=== PATIENT | female | born 1935 | race Caucasian/White ===

== ENCOUNTER 2018-02-05 12:49 | Outpatient (CLI) | payer MEDICARE ==
--- NOTE | 2018-02-05 15:08 | CT ---
CT HEAD NONCONTRAST: HISTORY: Headaches. COMPARISON: 05/02/16. FINDINGS: There is no evidence of acute intracranial hemorrhage or infarct. Ventricles appear normal in size, shape, and position. There is no mass effect or shift of midline structures. IMPRESSION: No acute intracranial abnormalities are demonstrated on noncontrast CT head. POS: [facility]
== END 2018-02-05 12:50 | disposition home or self-care (01) ==
LOC: MADCT 12:49
PROVIDERS: ATTEND Obstetrics & Gynecology
DX: G44.229 Chronic tension-type headache, not intractable (principal)
CPT/HCPCS: 70450

== ENCOUNTER 2023-05-26 14:21 | Inpatient (IN) | payer OTHER ==
[2023-05-26] MEDS ORDERED: Meclizine HCl 25 MG TAB PO PRN (15:15)
[2023-05-26] MEDS ORDERED: traMADol HCl 50 MG TAB PO PRN (19:39)
[2023-05-26] MEDS ORDERED: Acetaminophen 325 MG TAB PO PRN (19:41)
[2023-05-26] MEDS ORDERED: Lantiseptic Ointment 130 GM JAR TOP PRN (20:35)
[2023-05-26] MEDS: Lantus 1000 UNITS/10 ML VIAL SC SCH (21:17)
[2023-05-26] MEDS: Lantiseptic Ointment 130 GM JAR TOP SCH (21:17)
[2023-05-26] MEDS: Amiodarone 200 MG TAB PO SCH (21:18)
[2023-05-26] MEDS: Rosuvastatin 10 MG TAB PO SCH (21:18)
[2023-05-26] MEDS: Gabapentin 300 MG CAP PO SCH (21:18)
[2023-05-26] MEDS: hydrALAZINE 25 MG TAB PO SCH (21:19)
[2023-05-26] MEDS: Apixaban 2.5 MG TAB PO SCH (21:19)
[2023-05-27] MEDS: Levothyroxine Sodium 50 MCG TAB PO SCH (05:40)
[2023-05-27] MEDS: hydrALAZINE 25 MG TAB PO SCH ×3 (08:08→20:23)
[2023-05-27] MEDS: Furosemide 20 MG TAB PO SCH (08:09)
[2023-05-27] MEDS: Colchicine 0.6 MG TAB PO SCH (08:09)
[2023-05-27] MEDS: Apixaban 2.5 MG TAB PO SCH ×2 (08:10→20:22)
[2023-05-27] MEDS: Gabapentin 300 MG CAP PO SCH ×2 (08:11→20:22)
[2023-05-27] MEDS: Empagliflozin 10 MG TAB PO SCH (08:11)
[2023-05-27] MEDS: Lantiseptic Ointment 130 GM JAR TOP SCH ×2 (08:12→20:24)
[2023-05-27] MEDS: Amiodarone 200 MG TAB PO SCH ×2 (08:17→20:22)
[2023-05-27] MEDS ORDERED: NIFEdipine XL 30 MG TAB PO SCH (09:00)
[2023-05-27] MEDS: Lantus 1000 UNITS/10 ML VIAL SC SCH (09:43)
[2023-05-27] MEDS ORDERED: Dextrose 5% in Water 1,000 ML IV PRN (13:30)
[2023-05-27] MEDS ORDERED: Glucagon 1 MG/ML KIT IM PRN (13:30)
[2023-05-27] MEDS ORDERED: Dextrose 50% Abboject 50 ML SYRINGE IVP PRN (13:30)
[2023-05-27] MEDS: Rosuvastatin 10 MG TAB PO SCH (20:22)
[2023-05-27] MEDS ORDERED: Lantus 1000 UNITS/10 ML VIAL SC SCH (21:00)
[2023-05-28] MEDS: Levothyroxine Sodium 50 MCG TAB PO SCH (06:14)
[2023-05-28] MEDS ORDERED: NIFEdipine XL 30 MG TAB PO SCH ×2 (09:00→09:45)
[2023-05-28] MEDS: Apixaban 2.5 MG TAB PO SCH ×2 (09:45→21:03)
[2023-05-28] MEDS: Colchicine 0.6 MG TAB PO SCH (09:45)
[2023-05-28] MEDS ORDERED: Amiodarone 200 MG TAB PO SCH (09:45)
[2023-05-28] MEDS: Gabapentin 300 MG CAP PO SCH ×2 (09:46→21:03)
[2023-05-28] MEDS: Empagliflozin 10 MG TAB PO SCH (09:46)
[2023-05-28] MEDS: Furosemide 20 MG TAB PO SCH (09:46)
[2023-05-28] MEDS: Lantiseptic Ointment 130 GM JAR TOP SCH ×2 (09:47→21:03)
[2023-05-28] MEDS: Amiodarone 200 MG TAB PO SCH (10:56)
[2023-05-28] MEDS: hydrALAZINE 25 MG TAB PO SCH (10:56)
[2023-05-28] MEDS ORDERED: Simethicone Chewable 80 MG TAB PO PRN (20:55)
[2023-05-28] MEDS: Rosuvastatin 10 MG TAB PO SCH (21:02)
[2023-05-29] MEDS: Levothyroxine Sodium 50 MCG TAB PO SCH (05:36)
[2023-05-29 07:38] LABS: Hematocrit 36.1 % (36.0-47.0); Hemoglobin 11.6 g/dL (12.0-16.0); Mean Corpuscular HGB CONC 32.2 g/dL (32.0-36.0); Mean Corpuscular Hemoglobin 31.3 pg (27.0-31.0); Mean Corpuscular Volume 97.3 fl (78.0-98.0); Platelet Count 332 10x3/uL (130-400); RBC Distribution Width 12.1 % (11.5-14.5); Red Blood Cell (RBC) Count 3.71 mill/uL (4.20-5.40); White Blood Cell (WBC) Count 9.5 10x3/uL (4.8-10.8)
[2023-05-29 07:49] LABS: Anion Gap 14 mmol/L (10-20); BUN (Urea Nitrogen) 35 mg/dL (9.8-20.1); Calc. Creatinine Clearance 21 mL/min (70-130); Calcium 9.5 mg/dL (7.8-10.44); Carbon Dioxide 29 mmol/L (23-31); Chloride 101 mmol/L (98-107); Estimated GFR 23; Glucose 112 mg/dL (83-110); Sodium 140 mmol/L (136-145)
[2023-05-29] MEDS: Empagliflozin 10 MG TAB PO SCH (08:42)
[2023-05-29] MEDS: Apixaban 2.5 MG TAB PO SCH ×2 (08:42→21:41)
[2023-05-29] MEDS: Furosemide 20 MG TAB PO SCH (08:43)
[2023-05-29] MEDS: NIFEdipine XL 30 MG TAB PO SCH ×2 (08:43→08:50)
[2023-05-29] MEDS: Gabapentin 300 MG CAP PO SCH ×2 (08:43→21:42)
[2023-05-29] MEDS: Colchicine 0.6 MG TAB PO SCH (08:44)
[2023-05-29] MEDS: Lantiseptic Ointment 130 GM JAR TOP SCH ×2 (08:45→21:43)
[2023-05-29] MEDS ORDERED: Amiodarone 200 MG TAB PO SCH (09:00)
[2023-05-29] MEDS: HumaLOG 300 UNITS/3 ML VIAL SC PRN (12:00)
[2023-05-29] MEDS ORDERED: Acetaminophen 500 MG TAB PO PRN (13:08)
[2023-05-29] MEDS: traMADol HCl 50 MG TAB PO SCH ×2 (15:11→21:43)
[2023-05-29] MEDS: Rosuvastatin 10 MG TAB PO SCH (21:43)
[2023-05-30] MEDS: Levothyroxine Sodium 50 MCG TAB PO SCH (05:17)
[2023-05-30] MEDS: Furosemide 20 MG TAB PO SCH (08:39)
[2023-05-30] MEDS: Empagliflozin 10 MG TAB PO SCH (08:39)
[2023-05-30] MEDS: Amiodarone 200 MG TAB PO SCH (08:39)
[2023-05-30] MEDS: traMADol HCl 50 MG TAB PO SCH ×3 (08:39→20:25)
[2023-05-30] MEDS: Gabapentin 300 MG CAP PO SCH ×2 (08:40→20:26)
[2023-05-30] MEDS: Apixaban 2.5 MG TAB PO SCH ×2 (08:40→20:25)
[2023-05-30] MEDS: Lantiseptic Ointment 130 GM JAR TOP SCH ×2 (08:40→20:29)
[2023-05-30] MEDS ORDERED: NIFEdipine XL 30 MG TAB PO SCH (09:00)
[2023-05-30] MEDS: HumaLOG 300 UNITS/3 ML VIAL SC PRN (12:06)
[2023-05-30] MEDS: Rosuvastatin 10 MG TAB PO SCH (20:26)
[2023-05-31] MEDS: Levothyroxine Sodium 50 MCG TAB PO SCH (05:37)
[2023-05-31] MEDS: Amiodarone 200 MG TAB PO SCH (08:17)
[2023-05-31] MEDS: Colchicine 0.6 MG TAB PO SCH (08:17)
[2023-05-31] MEDS: Apixaban 2.5 MG TAB PO SCH ×2 (08:18→20:14)
[2023-05-31] MEDS: NIFEdipine XL 30 MG TAB PO SCH (08:18)
[2023-05-31] MEDS: Empagliflozin 10 MG TAB PO SCH (08:18)
[2023-05-31] MEDS: Furosemide 20 MG TAB PO SCH (08:19)
[2023-05-31] MEDS: traMADol HCl 50 MG TAB PO SCH ×3 (08:19→20:14)
[2023-05-31] MEDS: Gabapentin 300 MG CAP PO SCH ×2 (08:20→20:13)
[2023-05-31] MEDS: HumaLOG 300 UNITS/3 ML VIAL SC PRN (08:20)
[2023-05-31] MEDS: Lantiseptic Ointment 130 GM JAR TOP SCH ×2 (08:25→20:14)
[2023-05-31] MEDS: Docusate 100 MG CAP PO PRN (18:48)
[2023-05-31] MEDS: Rosuvastatin 10 MG TAB PO SCH (20:12)
[2023-06-01] MEDS: Levothyroxine Sodium 50 MCG TAB PO SCH (05:16)
[2023-06-01] MEDS: HumaLOG 300 UNITS/3 ML VIAL SC PRN (09:14)
[2023-06-01] MEDS: NIFEdipine XL 30 MG TAB PO SCH (09:15)
[2023-06-01] MEDS: Gabapentin 300 MG CAP PO SCH ×2 (09:16→20:00)
[2023-06-01] MEDS: Amiodarone 200 MG TAB PO SCH (09:16)
[2023-06-01] MEDS: Apixaban 2.5 MG TAB PO SCH ×2 (09:17→20:00)
[2023-06-01] MEDS: Empagliflozin 10 MG TAB PO SCH (09:17)
[2023-06-01] MEDS: traMADol HCl 50 MG TAB PO SCH ×3 (09:17→19:59)
[2023-06-01] MEDS: Lantiseptic Ointment 130 GM JAR TOP SCH ×2 (09:18→20:01)
[2023-06-01] MEDS: Rosuvastatin 10 MG TAB PO SCH (19:59)
[2023-06-01] MEDS: Docusate 100 MG CAP PO PRN (20:00)
[2023-06-02] MEDS: Levothyroxine Sodium 50 MCG TAB PO SCH (05:04)
[2023-06-02] MEDS: Gabapentin 300 MG CAP PO SCH ×2 (09:39→21:39)
[2023-06-02] MEDS: Apixaban 2.5 MG TAB PO SCH ×2 (09:39→21:38)
[2023-06-02] MEDS: Amiodarone 200 MG TAB PO SCH (09:39)
[2023-06-02] MEDS: NIFEdipine XL 30 MG TAB PO SCH (09:39)
[2023-06-02] MEDS: Empagliflozin 10 MG TAB PO SCH (09:39)
[2023-06-02] MEDS: traMADol HCl 50 MG TAB PO SCH ×3 (09:40→21:38)
[2023-06-02] MEDS: Colchicine 0.6 MG TAB PO SCH (09:41)
[2023-06-02] MEDS: HumaLOG 300 UNITS/3 ML VIAL SC PRN ×2 (09:41→12:08)
[2023-06-02] MEDS: Furosemide 20 MG TAB PO SCH (09:41)
[2023-06-02] MEDS: Lantiseptic Ointment 130 GM JAR TOP SCH ×2 (09:42→21:40)
[2023-06-02] MEDS: Senokot S 8.6-50 MG TAB PO SCH (21:38)
[2023-06-02] MEDS: Rosuvastatin 10 MG TAB PO SCH (21:39)
[2023-06-03] MEDS: Levothyroxine Sodium 50 MCG TAB PO SCH (05:09)
[2023-06-03] MEDS: Senokot S 8.6-50 MG TAB PO SCH ×2 (08:43→20:50)
[2023-06-03] MEDS: Amiodarone 200 MG TAB PO SCH (08:43)
[2023-06-03] MEDS: NIFEdipine XL 30 MG TAB PO SCH (08:43)
[2023-06-03] MEDS: traMADol HCl 50 MG TAB PO SCH ×3 (08:43→20:54)
[2023-06-03] MEDS: Apixaban 2.5 MG TAB PO SCH ×2 (08:43→20:50)
[2023-06-03] MEDS: Gabapentin 300 MG CAP PO SCH ×2 (08:44→20:50)
[2023-06-03] MEDS: Empagliflozin 10 MG TAB PO SCH (08:44)
[2023-06-03] MEDS: HumaLOG 300 UNITS/3 ML VIAL SC PRN ×3 (08:45→17:00)
[2023-06-03] MEDS: Lantiseptic Ointment 130 GM JAR TOP SCH ×2 (08:45→20:53)
[2023-06-03] MEDS: Rosuvastatin 10 MG TAB PO SCH (20:50)
[2023-06-03] MEDS: Lantus 1000 UNITS/10 ML VIAL SC SCH (20:52)
[2023-06-04] MEDS: Levothyroxine Sodium 50 MCG TAB PO SCH (06:32)
[2023-06-04] MEDS: traMADol HCl 50 MG TAB PO SCH ×3 (08:36→20:22)
[2023-06-04] MEDS: Apixaban 2.5 MG TAB PO SCH ×2 (08:37→20:30)
[2023-06-04] MEDS: Empagliflozin 10 MG TAB PO SCH (08:38)
[2023-06-04] MEDS: Gabapentin 300 MG CAP PO SCH ×2 (08:38→20:30)
[2023-06-04] MEDS: Colchicine 0.6 MG TAB PO SCH (08:38)
[2023-06-04] MEDS: NIFEdipine XL 30 MG TAB PO SCH (08:38)
[2023-06-04] MEDS: Amiodarone 200 MG TAB PO SCH (08:38)
[2023-06-04] MEDS: Senokot S 8.6-50 MG TAB PO SCH ×2 (08:38→20:29)
[2023-06-04] MEDS: Lantiseptic Ointment 130 GM JAR TOP SCH ×2 (08:40→20:32)
[2023-06-04] MEDS: HumaLOG 300 UNITS/3 ML VIAL SC PRN (13:07)
[2023-06-04] MEDS: Rosuvastatin 10 MG TAB PO SCH (20:29)
[2023-06-04] MEDS: Lantus 1000 UNITS/10 ML VIAL SC SCH (20:30)
[2023-06-05] MEDS: Levothyroxine Sodium 50 MCG TAB PO SCH (05:20)
[2023-06-05 05:57] LABS: Hematocrit 34.5 % (36.0-47.0); Hemoglobin 11.2 g/dL (12.0-16.0); Mean Corpuscular HGB CONC 32.5 g/dL (32.0-36.0); Mean Corpuscular Hemoglobin 31.4 pg (27.0-31.0); Mean Corpuscular Volume 96.5 fl (78.0-98.0); Mean Platelet Volume 7.3 fL (7.4-10.4); Platelet Count 276 10x3/uL (130-400); RBC Distribution Width 12.1 % (11.5-14.5); Red Blood Cell (RBC) Count 3.57 mill/uL (4.20-5.40); White Blood Cell (WBC) Count 6.2 10x3/uL (4.8-10.8)
[2023-06-05 06:43] LABS: Anion Gap 15 mmol/L (10-20); BUN (Urea Nitrogen) 32 mg/dL (9.8-20.1); Calc. Creatinine Clearance 26 mL/min (70-130); Calcium 9.5 mg/dL (7.8-10.44); Carbon Dioxide 28 mmol/L (23-31); Chloride 100 mmol/L (98-107); Estimated GFR 30; Glucose 130 mg/dL (83-110); Potassium 3.9 mmol/L (3.5-5.1); Sodium 139 mmol/L (136-145)
[2023-06-05] MEDS: Empagliflozin 10 MG TAB PO SCH (08:38)
[2023-06-05] MEDS: Furosemide 20 MG TAB PO SCH (08:38)
[2023-06-05] MEDS: Gabapentin 300 MG CAP PO SCH ×2 (08:38→20:14)
[2023-06-05] MEDS: Senokot S 8.6-50 MG TAB PO SCH ×2 (08:38→20:16)
[2023-06-05] MEDS: Amiodarone 200 MG TAB PO SCH (08:38)
[2023-06-05] MEDS: NIFEdipine XL 30 MG TAB PO SCH (08:38)
[2023-06-05] MEDS: Apixaban 2.5 MG TAB PO SCH ×2 (08:39→20:14)
[2023-06-05] MEDS: traMADol HCl 50 MG TAB PO SCH ×3 (08:40→20:16)
[2023-06-05] MEDS: Lantiseptic Ointment 130 GM JAR TOP SCH ×2 (08:40→20:15)
[2023-06-05 11:48] LABS: Hemoglobin A1c 6.7 % (4.0-6.0)
[2023-06-05] MEDS: HumaLOG 300 UNITS/3 ML VIAL SC PRN ×2 (12:32→18:14)
[2023-06-05] MEDS ORDERED: HYDROcodone/Acetaminophen 5/325 mg Tablet PO PRN (13:12)
[2023-06-05] MEDS ORDERED: HYDROcodone/Acetaminophen 10/325 mg Tablet PO PRN (13:12)
[2023-06-05] MEDS ORDERED: Bisacodyl 10 MG SUPP PR PRN (13:24)
[2023-06-05] MEDS: Rosuvastatin 10 MG TAB PO SCH (20:14)
[2023-06-05] MEDS: Lantus 1000 UNITS/10 ML VIAL SC SCH (20:15)
[2023-06-06] MEDS: Levothyroxine Sodium 50 MCG TAB PO SCH (04:52)
[2023-06-06] MEDS: Empagliflozin 10 MG TAB PO SCH (08:32)
[2023-06-06] MEDS: NIFEdipine XL 30 MG TAB PO SCH (08:32)
[2023-06-06] MEDS: Amiodarone 200 MG TAB PO SCH (08:32)
[2023-06-06] MEDS: Colchicine 0.6 MG TAB PO SCH (08:32)
[2023-06-06] MEDS: Gabapentin 300 MG CAP PO SCH ×2 (08:32→20:00)
[2023-06-06] MEDS: Apixaban 2.5 MG TAB PO SCH ×2 (08:32→19:59)
[2023-06-06] MEDS: Senokot S 8.6-50 MG TAB PO SCH ×2 (08:32→19:59)
[2023-06-06] MEDS: Lantiseptic Ointment 130 GM JAR TOP SCH ×2 (08:33→19:59)
[2023-06-06] MEDS: traMADol HCl 50 MG TAB PO SCH ×2 (08:33→15:32)
[2023-06-06] MEDS: HumaLOG 300 UNITS/3 ML VIAL SC PRN ×2 (08:34→11:42)
[2023-06-06 14:43] VITALS: BMI 24.8
[2023-06-06] MEDS: Acetaminophen 500 MG TAB PO PRN (15:30)
[2023-06-06] MEDS: Rosuvastatin 10 MG TAB PO SCH (19:59)
[2023-06-06] MEDS: Lantus 1000 UNITS/10 ML VIAL SC SCH (21:59)
[2023-06-07] MEDS: Levothyroxine Sodium 50 MCG TAB PO SCH (05:22)
[2023-06-07] MEDS: Empagliflozin 10 MG TAB PO SCH (07:55)
[2023-06-07] MEDS: Furosemide 20 MG TAB PO SCH (07:55)
[2023-06-07] MEDS: NIFEdipine XL 30 MG TAB PO SCH (07:55)
[2023-06-07] MEDS: Amiodarone 200 MG TAB PO SCH (07:56)
[2023-06-07] MEDS: Gabapentin 300 MG CAP PO SCH ×2 (07:57→21:21)
[2023-06-07] MEDS: Apixaban 2.5 MG TAB PO SCH ×2 (07:57→21:20)
[2023-06-07] MEDS: Lantiseptic Ointment 130 GM JAR TOP SCH ×2 (07:58→21:24)
[2023-06-07] MEDS: Senokot S 8.6-50 MG TAB PO SCH ×2 (07:58→21:20)
[2023-06-07] MEDS: HumaLOG 300 UNITS/3 ML VIAL SC PRN ×3 (12:13→21:22)
[2023-06-07] MEDS: Acetaminophen 500 MG TAB PO PRN (17:02)
[2023-06-07] MEDS: Rosuvastatin 10 MG TAB PO SCH (21:20)
[2023-06-07] MEDS: Lantus 1000 UNITS/10 ML VIAL SC SCH (21:22)
[2023-06-08] MEDS: Levothyroxine Sodium 50 MCG TAB PO SCH (05:35)
[2023-06-08 07:05] VITALS: BP 112/58; TEMP 98.1
[2023-06-08] MEDS: NIFEdipine XL 30 MG TAB PO SCH (08:17)
[2023-06-08] MEDS: Amiodarone 200 MG TAB PO SCH (08:17)
[2023-06-08] MEDS: Furosemide 20 MG TAB PO SCH (08:17)
[2023-06-08] MEDS: Apixaban 2.5 MG TAB PO SCH (08:18)
[2023-06-08] MEDS: Empagliflozin 10 MG TAB PO SCH (08:18)
[2023-06-08] MEDS: Senokot S 8.6-50 MG TAB PO SCH (08:18)
[2023-06-08] MEDS: Gabapentin 300 MG CAP PO SCH (08:18)
[2023-06-08] MEDS: Colchicine 0.6 MG TAB PO SCH (08:20)
[2023-06-08] MEDS: Lantiseptic Ointment 130 GM JAR TOP SCH (08:20)
[2023-06-08] MEDS: HumaLOG 300 UNITS/3 ML VIAL SC PRN (12:01)
== END 2023-06-08 16:00 | disposition home or self-care (01) | DRG 552 ==
LOC: MADMS 14:21
PROVIDERS: ADMIT Family Medicine; ATTEND Family Medicine
DX: M54.16 Radiculopathy, lumbar region (principal); I13.0 Hypertensive heart and chronic kidney disease with heart failure and stage 1 through stage 4 chronic kidney disease, or unspecified chronic kidney disease; I48.20 Chronic atrial fibrillation, unspecified; M16.0 Bilateral primary osteoarthritis of hip; E03.9 Hypothyroidism, unspecified; G89.29 Other chronic pain; E66.9 Obesity, unspecified; I25.10 Atherosclerotic heart disease of native coronary artery without angina pectoris; I50.9 Heart failure, unspecified; N18.30 Chronic kidney disease, stage 3 unspecified; E11.22 Type 2 diabetes mellitus with diabetic chronic kidney disease; E11.649 Type 2 diabetes mellitus with hypoglycemia without coma; K59.00 Constipation, unspecified; Z79.899 Other long term (current) drug therapy; Z79.01 Long term (current) use of anticoagulants; Z79.4 Long term (current) use of insulin; Z95.1 Presence of aortocoronary bypass graft; Z68.24 Body mass index [BMI] 24.0-24.9, adult
CPT/HCPCS: 36416; 80048; 83036; 85027; J1815

== ENCOUNTER 2023-06-20 11:45 | Emergency (ER) | payer MEDICARE, OTHER ==
[2023-06-20] MEDS ORDERED: Bisacodyl 10 MG SUPP ONE (12:53)
[2023-06-20 13:20] LABS: Bilirubin Negative (Negative); Blood, Urine Negative (Negative); Clarity Clear (Clear); Glucose, Urine (Dipstick) 500 mg/dL (Negative); Ketone, Urine Negative (Negative); Leukocyte Negative (Negative); Nitrite Negative (Negative); Protein, Urine (Dipstick) 30 mg/dL (Neg-Trace); Urobilinogen 0.2 mg/dL (Less than 2); pH, Urine 5.5 (5.0-9.0)
[2023-06-20 13:22] LABS: Bacteria/HPF 2+ HPF (None Seen); CAUTI Indications for Culture Dysuria,urgency,freq; RBC/HPF 0-3 HPF (0-3); Squamous Epithelial 0-3 HPF (0-3); WBC/HPF 0-3 HPF (0-3)
[2023-06-20 13:24] LABS: Urine Culture Reflex No No
== END 2023-06-20 13:45 | disposition home or self-care (01) ==
LOC: MADERS 11:45
DX: K59.09 Other constipation (principal); R13.10 Dysphagia, unspecified; E03.9 Hypothyroidism, unspecified; E78.5 Hyperlipidemia, unspecified; I11.0 Hypertensive heart disease with heart failure; I50.9 Heart failure, unspecified; E11.9 Type 2 diabetes mellitus without complications; Z79.899 Other long term (current) drug therapy; Z79.82 Long term (current) use of aspirin; Z79.4 Long term (current) use of insulin; Z79.01 Long term (current) use of anticoagulants; Z79.84 Long term (current) use of oral hypoglycemic drugs
CPT/HCPCS: 81001; 99283

== ENCOUNTER 2023-06-25 13:38 | Emergency (ER) | payer OTHER ==
[2023-06-25 14:46] LABS: #Basophils 0.1 thou/uL (0.0-0.2); #Lymphocytes 0.9 thou/uL (1.20-3.40); #Neutrophils 12.4 thou/uL (1.40-6.50); %Basophils 0.5 % (0.0-1.0); %Eosinophils 0.1 % (0.0-10.0); %Monocytes 6.9 % (0.0-10.0); %Neutrophils 86.6 % (42.0-75.0); Hematocrit 32.9 % (36.0-47.0); Hemoglobin 10.7 g/dL (12.0-16.0); Mean Corpuscular HGB CONC 32.5 g/dL (32.0-36.0); Mean Corpuscular Hemoglobin 30.9 pg (27.0-31.0); Mean Platelet Volume 7.2 fL (7.4-10.4); Platelet Count 232 10x3/uL (130-400); RBC Distribution Width 12.4 % (11.5-14.5); Red Blood Cell (RBC) Count 3.47 mill/uL (4.20-5.40); White Blood Cell (WBC) Count 14.3 10x3/uL (4.8-10.8)
[2023-06-25 14:50] LABS: INR-International Normal Ratio 1.6; Prothrombin Time 19.2 sec (12.0-14.7)
[2023-06-25 14:51] LABS: PTT 30.6 sec (22.9-36.1)
[2023-06-25 14:58] LABS: ALT (SGPT) 15 U/L (8-55); AST (SGOT) 23 U/L (5-34); Albumin 3.1 g/dL (3.4-4.8); Alkaline Phosphatase 42 U/L (40-110); Anion Gap 14 mmol/L (10-20); BUN (Urea Nitrogen) 30 mg/dL (9.8-20.1); Bilirubin, Total 0.4 mg/dL (0.2-1.2); Calc. Creatinine Clearance 0 mL/min (70-130); Calcium 9.1 mg/dL (7.8-10.44); Carbon Dioxide 29 mmol/L (23-31); Chloride 103 mmol/L (98-107); Estimated GFR 26; Globulin 3.1 g/dL (2.4-3.5); Glucose 230 mg/dL (83-110); Lipase 30 U/L (8-78); Magnesium 2.2 mg/dL (1.6-2.6); Potassium 3.9 mmol/L (3.5-5.1); Protein, Total 6.2 g/dL (5.8-8.1); Sodium 142 mmol/L (136-145)
[2023-06-25] MEDS ORDERED: Fleet Saline Enema 133 ML BOT ONE (15:49)
[2023-06-25 15:53] LABS: Bilirubin Negative (Negative); Blood, Urine Small (Negative); Clarity Clear (Clear); Glucose, Urine (Dipstick) 500 mg/dL (Negative); Ketone, Urine Negative (Negative); Leukocyte Negative (Negative); Nitrite Negative (Negative); Protein, Urine (Dipstick) 100 mg/dL (Neg-Trace); Specific Gravity, Urine 1.015 (1.005-1.030); pH, Urine 5.5 (5.0-9.0)
[2023-06-25 16:00] LABS: Bacteria/HPF Rare-Few HPF (None Seen); CAUTI Indications for Culture Pelvic or flank pain; RBC/HPF 0-3 HPF (0-3); Squamous Epithelial 0-3 HPF (0-3); WBC/HPF None Seen HPF (0-3)
[2023-06-25 16:01] LABS: Urine Culture Reflex No No
[2023-06-25 16:07] LABS: SARS-CoV-2 NAA Rapid Test Not Detected (NotDetected)
== END 2023-06-25 17:10 | disposition home or self-care (01) ==
LOC: MADERS 13:38
DX: K59.00 Constipation, unspecified (principal); R13.10 Dysphagia, unspecified; R53.83 Other fatigue; R11.0 Nausea; Z20.822 Contact with and (suspected) exposure to COVID-19; I11.0 Hypertensive heart disease with heart failure; I50.9 Heart failure, unspecified; E03.9 Hypothyroidism, unspecified; E78.5 Hyperlipidemia, unspecified; E11.9 Type 2 diabetes mellitus without complications
CPT/HCPCS: 74176; 81001; 83690; 83735; 85610; 85730; 93005; U0002; 80053; 84443; 85025